=== PATIENT | male | born 2000 | race African-American/Black ===

== ENCOUNTER 2019-10-02 12:41 | Emergency (ER) | payer MEDICAID ==
[~2019-10-02] VITALS: Ht 157.5 cm; Wt 63.5 kg
[2019-10-02 12:44] VITALS: BP 132/80
--- NOTE | 2019-10-02 13:05 | NUR ---
18 Y/O MALE C/O N/V/D STARTING THIS MORNING. 5 EPISODES OF EMESIS. DENIES ANY ABD PAIN. BOWEL SOUNDS NORMOACTIVE. ABD SOFT/NON TENDER/NON DISTENDED. RESP EVEN AND UNLABORED, LUNG SOUNDS CLEAR IN BILAT LOBES. SKIN COOL/DRY. CAP REFILL <3/ AAOX4. NO PMH NKA
[2019-10-02] MEDS ORDERED: ONDANSETRON 4 MG/2 ML VIAL IVP ONE (13:50)
[2019-10-02] MEDS ORDERED: NACL 0.9% 1,000 ML IV ONE (13:50)
[2019-10-02 14:07] LABS: BASOPHILS # (AUTO) 0.1 K/uL (0.00-0.22); BASOPHILS % (AUTO) 0.5 % (0.0-2.0); EOSINOPHILS % (AUTO) 0.1 % (0.0-4.0); HEMATOCRIT 47.1 % (36-52); HEMOGLOBIN 15.7 g/dL (12.0-18.0); LYMPHOCYTES # (AUTO) 0.7 K/uL (2.0-11.5); LYMPHOCYTES % (AUTO) 6.4 % (20.5-51.1); MEAN CORPUSCULAR HEMOGLOBIN 30 pg (27-31); MEAN CORPUSCULAR HGB CONC 33 g/dL (33-37); MEAN CORPUSCULAR VOLUME 89.6 fL (80-94); MONOCYTES # (AUTO) 0.3 K/uL (0.8-1.0); MONOCYTES % (AUTO) 2.8 % (1.7-9.3); NEUTROPHILS # (AUTO) 10.5 K/uL (1.8-7.7); NEUTROPHILS % (AUTO) 90.2 % (42.2-75.2); PLATELET COUNT (AUTO) 163 K/uL (140-450); RED BLOOD CELL COUNT(AUTO) 5.25 MIL/uL (4.20-6.10); RED CELL DISTRIBUTION WIDTH 13.8 % (11.6-13.7); WHITE BLOOD COUNT (AUTO) 11.7 K/uL (4.5-11.0)
[2019-10-02 14:25] LABS: BARBITURATE, URINE NEGATIVE ng/ml (NEG <=200); BENZODIAZEPINE, URINE NEGATIVE ng/mL (NEG <=200); COCAINE, URINE NEGATIVE ng/mL (NEG <=300)
[2019-10-02 14:26] LABS: CANNABINOID, URINE POSITIVE ng/mL (NEG <=50); OPIATE, URINE NEGATIVE ng/mL (NEG <=2000); PHENCYCLIDINE SCREEN,URINE NEGATIVE ng/mL (NEG <=25)
[2019-10-02 14:30] LABS: ALBUMIN 4.7 g/dL (3.4-5.0); ANION GAP 12.2 (8-16); ASPARTATE AMINOTRANSFERASE 26 U/L (15-37); CARBON DIOXIDE 30.2 mmol/L (21-32); CHLORIDE 105 mmol/L (98-107); CREATININE 1.3 mg/dL (0.6-1.3); GFR ARICAN-AMERICAN 91 mL/min (>90); GLUCOSE 81 mg/dL (74-106); POTASSIUM 4.4 mmol/L (3.5-5.1); SODIUM SERUM 143 mmol/L (136-145); TOTAL BILIRUBIN 0.6 mg/dL (0.0-1.0); UREA NITROGEN, BLOOD 12 mg/dL (7-18)
--- NOTE | 2019-10-02 14:37 | NUR ---
RESTING IN BED. RESP EVEN AND UNLABORED. REPORTS THAT NAUSEA HAS DECREASED. BED IN LOWEST POSITION.
[2019-10-02 14:47] LABS: ACETAMINOPHEN < 0.5 ug/ml (10-30); SALICYLATE < 2.8 mg/dL (2.8-20.0)
[2019-10-02 15:06] VITALS: BP 132/80
== END 2019-10-02 15:06 | disposition home or self-care (01) ==
LOC: MED 12:41
DX: F10.129 Alcohol abuse with intoxication, unspecified (principal); R11.2 Nausea with vomiting, unspecified; Z71.6 Tobacco abuse counseling
CPT/HCPCS: 36415; 80053; 80305; 85025; 93005; 96361; 96374; 99284; G0480; G0482; J2405; J7030